=== PATIENT | male | born 1980 | race Caucasian/White ===

== ENCOUNTER 2022-02-26 05:24 | Emergency (ER) | payer SELFPAY ==
[2022-02-26 06:36] LABS: Urine Blood Negative (Negative); Urine Glucose Negative (Negative); Urine Protein Negative (Negative); Urine pH 7.5 (5.0-7.0)
[2022-02-26 06:43] LABS: Absolute Lymphocytes (CBC) 2.3 K/uL (0.7-4.9); Hematocrit 44.4 % (39.6-49.0); Lymphocytes % 24.5 % (15.3-44.8); MCV 91.6 fL (80-100); MPV 7.6 fL (7.6-11.3); RBC Red Blood Cell Count 4.85 M/uL (4.33-5.43)
[2022-02-26] MEDS ORDERED: NA CHLORIDE 0.9% 500 ML ONE (06:47)
[2022-02-26 06:53] LABS: Barbiturates NEGATIVE (NEGATIVE); Benzodiazepines NEGATIVE (NEGATIVE); Cocaine NEGATIVE (NEGATIVE); METHAMPHETAM NEGATIVE (NEGATIVE); Methadone NEGATIVE (NEGATIVE); Opiates NEGATIVE (NEGATIVE); Phencyclidine NEGATIVE (NEGATIVE); THC Cannibis NEGATIVE (NEGATIVE)
[2022-02-26 06:56] LABS: Protime INR 0.98
[2022-02-26 07:18] LABS: ALT/SGPT 68 U/L (12-78); AST/SGOT 30 U/L (15-37); Albumin 3.8 g/dL (3.4-5.0); Alkaline Phosphatase 92 U/L (45-117); BUN Blood Urea Nitrogen 19 mg/dL (7-18); Bicarbonate 26 mmol/L (21-32); Bilirubin Direct 0.1 mg/dL (0-0.2); Bilirubin Total 0.2 mg/dL (0.2-1.0); Glomerular Filtration Rate 112 ml/min (=/>90); Glucose Level 111 mg/dL (74-106); Potassium 3.7 mmol/L (3.5-5.1); Protein, Total 7.3 g/dL (6.4-8.2); Sodium Level 140 mmol/L (136-145)
--- NOTE | 2022-02-26 07:27 | ER ---
Nurse's Notes [facility] Name: Lobo Saravia Age: 41 yrs Sex: Male : 1980 Arrival Date: 02/26/2022 Time: 05:29 Bed 18 Private MD: Diagnosis: Bipolar disorder, unspecified-PARANOID Presentation: 02/26 05:46 Chief complaint: Spouse and/or significant other states: Per Sister in law patient is ke1 having muscle spasm since a month, agitation, confusion and paranoia due to not taking psych meds " he thinks someone is putting something in his cigarette''. Also patient is drinking about 4 gallons of water a day. Coronavirus screen: Vaccine status: Patient reports being unvaccinated. Ebola Screen: No symptoms or risks identified at this time. Initial Sepsis Screen: Does the patient meet any 2 criteria? No. Patient's initial sepsis screen is negative. Does the patient have a suspected source of infection? No. Patient's initial sepsis screen is negative. Risk Assessment: Do you want to hurt yourself or someone else? Patient reports no desire to harm self or others. Onset of symptoms was January 26, 2022. 05:46 Method Of Arrival: Ambulatory ke1 05:46 Acuity: ABHI 3 ke1 Triage Assessment: 05:51 General: Appears well developed, Behavior is cooperative. Pain: Denies pain. Neuro: ke1 Level of Consciousness is awake, alert, Oriented to person, place, time, situation. Respiratory: Respiratory effort is even, unlabored. Musculoskeletal: Reports muscle spasms. Historical: - Allergies: 05:50 No Known Allergies; ke1 - Home Meds: 05:56 Zoloft 50 mg Oral tab [Active]; Depakote 500 mg Oral TbEC [Active]; ke1 - PMHx: 05:56 Bipolar disorder; ke1 - Immunization history:: Adult Immunizations Client reports having NOT received the Covid vaccine. - Social history:: Smoking status: Patient reports the use of cigarette tobacco products, smokes one pack cigarettes per day. Screenin:53 Abuse screen: Denies threats or abuse. Nutritional screening: No deficits noted. ke1 Tuberculosis screening: No symptoms or risk factors identified. Fall Risk None identified. Assessment: 06:41 Reassessment: No changes from previously documented assessment. Patient is alert, ke1 oriented x 3, equal unlabored respirations, skin warm/dry/pink. Patient denies pain at this time. 07:12 General: Appears comfortable, Behavior is calm, cooperative. Pain: Denies pain. Neuro: em6 Hdz Agitation-Sedation Scale (RASS): 0 - Alert and Calm Level of Consciousness is awake, alert, obeys commands, Oriented to person, place, time, situation. Cardiovascular: Heart tones present Patient's skin is warm and dry. Respiratory: Airway is patent Respiratory effort is even, unlabored, Respiratory pattern is regular, symmetrical, Breath sounds are clear bilaterally. GI: No signs and/or symptoms were reported involving the gastrointestinal system. : No signs and/or symptoms were reported regarding the genitourinary system. EENT: No signs and/or symptoms were reported regarding the EENT system. Derm: Skin is pink, warm \\T\\ dry. Musculoskeletal: Range of motion: intact in all extremities, patient appears to have hiccups. 08:14 Reassessment: No changes from previously documented assessment. Patient denies pain at em6 this time. provider at bed side discussing plans with patient and family members. awaiting call back from [facility].. Neuro: Hdz Agitation-Sedation Scale (RASS): 0 - Alert and Calm Level of Consciousness is awake, alert, obeys commands, Oriented to person, place, time, situation. Respiratory: Airway is patent Respiratory effort is even, unlabored, Respiratory pattern is regular, symmetrical. 09:31 Reassessment: No changes from previously documented assessment. Patient denies pain at em6 this time. [facility] on a video call with patient. . Neuro: Hdz Agitation-Sedation Scale (RASS): 0 - Alert and Calm Level of Consciousness is awake, alert, obeys commands, Oriented to person, place, time, situation. 10:03 Reassessment: finished video call consult with [facility]. . Pain: Denies pain. Neuro: em6 Hdz Agitation-Sedation Scale (RASS): 0 - Alert and Calm Level of Consciousness is awake, alert, obeys commands, Oriented to person, place, time, situation. 11:00 Reassessment: Patient appears in no apparent distress at this time. patient has his em6 eyes closed. respirations are even and unlabored. . 12:00 Reassessment: Patient appears in no apparent distress at this time. No changes from em6 previously documented assessment. patient has eyes closed. respirations are even and unlabored. . 13:00 Reassessment: No changes from previously documented assessment. patient has eyes em6 closed. even and unlabored breathing noted. . 14:20 Reassessment: Patient appears in no apparent distress at this time. Neuro: Hdz 6 Agitation-Sedation Scale (RASS): 0 - Alert and Calm Level of Consciousness is Oriented to. Respiratory: Airway is patent Respiratory effort is even, unlabored, Respiratory pattern is regular, symmetrical. 15:30 Reassessment: Patient appears in no apparent distress at this time. No changes from em6 previously documented assessment. Patient is alert, oriented x 3, equal unlabored respirations, skin warm/dry/pink. Neuro: Hdz Agitation-Sedation Scale (RASS): 0 - Alert and Calm Level of Consciousness is awake, alert, obeys commands, Oriented to person, place, time, situation. Respiratory: Airway is patent Respiratory effort is even, unlabored, Respiratory pattern is regular, symmetrical. 16:30 Reassessment: Patient appears in no apparent distress at this time. No changes from em6 previously documented assessment. Patient is alert, oriented x 3, equal unlabored respirations, skin warm/dry/pink. Neuro: Hdz Agitation-Sedation Scale (RASS): 0 - Alert and Calm Level of Consciousness is awake, alert, obeys commands, Oriented to person, place, time, situation. Respiratory: Airway is patent Respiratory effort is even, unlabored, Respiratory pattern is regular, symmetrical. 17:30 Reassessment: Patient appears in no apparent distress at this time. No changes from em6 previously documented assessment. Patient is alert, oriented x 3, equal unlabored respirations, skin warm/dry/pink. Neuro: Hdz Agitation-Sedation Scale (RASS): 0 - Alert and Calm Level of Consciousness is awake, alert, obeys commands, Oriented to person, place, time, situation. Respiratory: Airway is patent Respiratory effort is even, unlabored, Respiratory pattern is regular, symmetrical. 18:45 Reassessment: Patient appears in no apparent distress at this time. Patient and/or jd3 family updated on plan of care and expected duration. Pain level reassessed. Patient is alert, oriented x 3, equal unlabored respirations, skin warm/dry/pink. 19:07 Reassessment: family number: brother [phone] sister in law [phone]. em6 02/27 01:11 Reassessment: pt has had an episode of angry outburst and it has lasted aprox 45min. pt dominguez first outburst episode was aprox 45 min ago when he came out of his room and yelled at me. pt stated " do you have a fucking problem?" i said no and pt "good!" another outburst was with a tech and he said " if you touch her, im going to fucking kill you!" pt is in room at this time. meds have been ordered. will give if needed. 02:15 Reassessment:. ja4 03:17 Reassessment: pt pacing room at this time. [facility] 03:28 Reassessment: pt in room and given the option to rcv some ativan to help him relax and ja4 stop pacing. pt stated " you aint giving me that shit." pt aadvised that it will help him get a little rest. he said "i aint taking that." i told him that i have it if he wants it then told him i am going to shut the door. pt then opened the door after it had been closed and also opened the door all the way on the next room and walked back into room and sat down. 03:45 Reassessment: pt decided to place chair outside the door and sit. pt advised that he dominguez needs to go back into room. pt stated "im good right here." I then told pt that he needs to go into room or he needs to leave the hospital. pt stated" no i dont im admitted." i told him that he wasn't and if he doesn't go back into room security would be notified. pt sat in chair until i picked up to phone to call security. pt then grabbed the chair and went back inside the room. provider notified. 04:46 Reassessment: pt packed up all his belongings and started walking to the exit but jaKrishna stopped and told if he was leaving i would have to take out those iv's. pt then turned around and said " no i aint leaving yet." pt then walked back into his room with his stuff in hand. pt now sitting in chair in room. 05:06 Reassessment: pt has stated that his brother is going to come get him. i advised him ja4 that he could leave anytime. he then decided to walk towards the exit and as he did i advised him that i would have to call the authorities if he walks out with iv's in arm. pt stated "go ahead and kept walking." i attempted to get ahold of security but no answer and pt walked around and went back to room. i asked if he would like that medicine the provider ordered and he states "no" i then told him all we ask is that he stays in the room and stop coming out. pt stated he is waiting for his brother. pt is now sitting in chair at door staring at staff as they walk by. 05:25 Reassessment: pt walked out to the waiting room to see if his brother was there and ja4 then he sat in a chair. i advised him that i needed to take the iv's out if he was going to leave. i told him i would put a cover over the site and he said i was not putting that stuff on him. i then said then you will probably bleed then he stated he would just use his shirt. aft the first iv i said ok now i need the other one and he stated, " ill just keep this one because im not leaving yet." i then informed him that he has to go back into the ED if he wants to keep the other iv in. pt said ok and we walked back to pts room. no profuse bleeding noted. iv not damaged. pt removed whole iv. 05:36 Reassessment: pt brother has been notified per pt and advised that pt wants to go home ja4 and that pt is not following the rules of the hospital and does not want medication to help with his erratic behavior. pt brother stated he would be here in a little bit. 05:36 Reassessment: pt has walked to exam chair to sit after repeated warnings to stay in ja4 room. pt sat down got back up and is now in his bed in his room. 07:30 Reassessment: Patient and/or family updated on plan of care and expected duration. Pain jh6 level reassessed. Patient is alert, oriented x 3, equal unlabored respirations, skin warm/dry/pink. Brother at bedside with sister n law. Pt cooperative and is eating doughnuts. shift supervisor film processing reported that pt had been uncooperative at times. pt states that he has been feeling anxious and is ok to receive Ativan and Geodon. Family states that pt has gone 2-3 days without sleeping before being able to rest. Introduced myself to pt and family. Pt states that he is going to try and sleeping having no thoughts of SI or HI. 09:58 Reassessment: Patient and/or family updated on plan of care and expected duration. Pain jh6 level reassessed. Pt resting, = rise and fall of chest and nad noted. 13:00 Reassessment: Patient is alert, oriented x 3, equal unlabored respirations, skin jh6 warm/dry/pink. Pt awake and requesting coffee, has put shoes on and states that he is wanting to get something out of the vending machines. Advised pt that he could not leave to the lobby with an IV in his arm and asked if he would like for me to take it out, pt stated no and walked back to room. 13:40 Reassessment: Patient is alert, oriented x 3, equal unlabored respirations, skin jh6 warm/dry/pink. Pt attempting to walk back out to lobby to the vending machines. States that he cannot eat the meal tray that we gave him because it smells funny. Pt states that he wants to talk to his brother but when i called him on the unit phone, pt stated that he would talk to him when he got here, that he was not using our phone. Pt did allow me to take IV out from rt fa at this time and is calm eating grapes that brother brought up for him. 15:48 Reassessment: Patient is alert, oriented x 3, equal unlabored respirations, skin jh6 warm/dry/pink. pts brother now at bedside, speaking with pt and advising him that he has to stay in his room. Brother states that he his going to stay this afternoon. 18:03 Reassessment: No changes from previously documented assessment. Patient is alert, jh6 oriented x 3, equal unlabored respirations, skin warm/dry/pink. Pts brother at bedside helping pt stay in room and redirect. pt alert cooperative having no thoughts of HI and or SI. 02/28 01:03 Reassessment: pt has gone outside to the lobby and sat in chair for aprox 5 minutes and ja4 is back in his room at this time. 05:48 Reassessment: pt in bed with eyes closed. breathing normal. no issues at this time. ja4 08:00 Reassessment: Patient appears in no apparent distress at this time. Patient and/or ph family updated on plan of care and expected duration. Pain level reassessed. Patient is alert, oriented x 3, equal unlabored respirations, skin warm/dry/pink. Pt resting quietly, no complaints at this time. 10:00 Reassessment: Patient appears in no apparent distress at this time. Patient and/or ph family updated on plan of care and expected duration. Pain level reassessed. Patient is alert, oriented x 3, equal unlabored respirations, skin warm/dry/pink. 12:00 Reassessment: Patient appears in no apparent distress at this time. Patient and/or ph family updated on plan of care and expected duration. Pain level reassessed. Patient is alert, oriented x 3, equal unlabored respirations, skin warm/dry/pink. Patient denies pain at this time. 15:10 Reassessment: Patient appears in no apparent distress at this time. Patient and/or ph family updated on plan of care and expected duration. Pain level reassessed. Patient is alert, oriented x 3, equal unlabored respirations, skin warm/dry/pink. Awaiting bed at psychiatric facility. 17:40 Reassessment: report given to NEO Foley at [facility]. 19:44 Reassessment: Pt leaving with EMS to Transfer to [facility]. Pt cooperative, alert and vc1 oriented. No IV access. Psych: 02/26 05:53 [place] Suicide Severity Screening: In the past month, have you wished you were ke1 or wished you could go to sleep and not wake up? Patient responds "No." "In the past month, have you actually had any thoughts of killing yourself?" Patient responds "no." "In your lifetime, have you ever done anything, started to do anything, or prepared to do anything to end your life?" Patient responds "no.". Subjective:. Objective: Patient is cooperative. 05:57 Interventions: Patient placed in hospital gown. Safety Checks: ke1 05:58 Pt denies substance abuse. ke1 07:15 Commitment: N/A. em6 Vital Signs: 05:46 BP 157 / 86; Pulse 80; Resp 19; Temp 99.2(O); Pulse Ox 97% on R/A; Weight 94.35 kg; ke1 Height 5 ft. 11 in. (180.34 cm); Pain 0/10; 07:26 BP 145 / 84; Pulse 72; Resp 16; Pulse Ox 99% on R/A; em6 08:30 BP 135 / 80; Pulse 75; Resp 16; Pulse Ox 99% on R/A; em6 09:15 BP 119 / 63; Pulse 72; Resp 18; Pulse Ox 98% on R/A; em6 10:00 BP 129 / 81; Pulse 91; Resp 18; Pulse Ox 99% on R/A; em6 14:00 BP 141 / 92; Pulse 73; Resp 16; Pulse Ox 100% on R/A; em6 17:50 BP 119 / 74; Pulse 67; Resp 16; Pulse Ox 100% on R/A; em6 02/27 07:30 BP 116 / 80; Pulse 66; Resp 17; Temp 97.7(O); Pulse Ox 98% ; Pain 0/10; jh6 02/28 08:00 BP 117 / 76; Pulse 68; Resp 18; Temp 97.9; Pulse Ox 100% on R/A; ph 02/26 05:46 Body Mass Index 29.01 (94.35 kg, 180.34 cm) ke1 ED Course: 02/26 05:29 Patient arrived in ED. bp1 05:31 Corey Sawyer RN is Primary Nurse. ke1 05:37 Rodrigo Koch MD is Attending Physician. iraj 05:50 Triage completed. ke1 05:53 Patient has correct armband on for positive identification. Call light in reach. Adult ke1 w/ patient. 06:25 Inserted saline lock: 20 gauge in right forearm, using aseptic technique. ke1 06:35 Inserted saline lock: 20 gauge in right antecubital area, using aseptic technique. ke1 07:15 Primary Nurse role handed off by Corey Sawyer RN eb 07:27 Patient notified of wait time. em6 08:25 Desai, Tesfaye, RN is Primary Nurse. jd3 10:13 faxed patient info to Timothy from the [facility]. eb 23:54 faxed patient clinicals to all available psych facilities. mw2 02/27 05:25 IV discontinued, intact, No redness/swelling at site. IV removed from right AC by pt. ja4 08:08 refaxed chart to [facility]. bd 23:21 Faxed requested Exclusionary form to [facility]. wm 02/28 06:38 Called [facility] to get an update regarding the Dr. to since the exclusionary form was sent and received last night. Lacie stated she will present to this morning and we should be getting a call this morning. 14:48 faxed repeat cbc and cmp to [facility] as requested by [facility]. bd 18:06 re faxed labs to [phone]. sp 18:07 called [facility]' waiting for Doc to Doc. sp 18:28 No provider procedures requiring assistance completed. ph Administered Medications: 02/26 05:38 CANCELLED (Physician Discretion): NS 0.9% 500 ml IV at 125 ml/hr continuous tw5 06:41 Drug: NS 0.9% 500 ml Route: IV; Rate: bolus; Site: right forearm; ke1 07:15 Follow up: Response: No adverse reaction; IV Status: Completed infusion; IV Intake: em6 500ml 02/27 07:15 Drug: Ativan (LORazepam) 2 mg Route: IVP; Site: right forearm; ja4 07:18 Drug: Geodon (ziprasidone) 20 mg Route: IM; Site: left deltoid; ja4 21:27 CANCELLED (Physician Discretion): SEROquel (QUEtiapine) 25 mg PO once ms3 21:52 Drug: SEROquel (QUEtiapine) 25 mg Route: PO; ja4 Medication: 02/28 13:47 VIS not applicable for this client. ph Intake: 02/26 07:15 IV: 500ml; Total: 500ml. em6 Outcome: 07:27 ER care complete, transfer ordered by MD. galo 02/28 19:45 Transferred by ground EMS to other acute care facility: [facility]. Transfer form vc1 completed. Condition: good Instructed on the need for transfer. 19:47 Patient left the ED. vc1 Signatures: Dulce Garcia Corey, MD MD cha Pinkerton, Shawna sp Hall, Patricia RN Tesfaye Kim ph D, RN RN jd3 Naomi, Rohit mw2 Leighann Winchester, Deandra Guevara Jennifer, RN RN jh6 Jodie Le RN RN vc1 Corey Sawyer RN RN ke1 Jeannine Redd RN RN em6 Lobo Madrigal RN RN 4 Arsh Jett DO ms3 Wood, Anisha tw5 Corrections: (The following items were deleted from the chart) 02/26 06:42 05:46 Chief complaint: Spouse and/or significant other states: Per Sister in law ke1 patient is having muscle spasm since a month, agitation, confusion and paranoia due to not taking psych meds " he thinks someone is putting something in his cigarette'' 1 06:42 05:51 General: Appears well developed, Behavior is cooperative, [place] [id number] 07:06 05:46 Chief complaint: Spouse and/or significant other states: Per Sister in law ke1 patient is having muscle spasm since a month, agitation, confusion and paranoia due to not taking psych meds " he thinks someone is putting something in his cigarette'' ke1 08:26 08:14 Reassessment: No changes from previously documented assessment. Patient denies em6 pain at this time. em6 08:27 08:14 Reassessment: No changes from previously documented assessment. Patient denies em6 pain at this time. provider at bed side discussing plans with patient and family members. . em6 14:20 13:00 Reassessment: No changes from previously documented assessment. em6 em6 02/27 06:09 05:25 IV discontinued, intact, No redness/swelling at site. [id number] 13:53 13:50 Reassessment: Patient is alert, oriented x 3, equal unlabored respirations, skin jh6 warm/dry/pink. Pt awake and requesting coffee, has put shoes on and states that he is wanting to get something out of the vending machines. Advised pt that he could not leave to the lobby with an IV in his arm and asked if he would like for me to take it out, pt stated no and walked back to room. jh6
--- NOTE | 2022-02-26 07:27 | EDPHYS ---
Physician Documentation [facility] Name: Lobo Saravia Age: 41 yrs Sex: Male : 1980 Arrival Date: 02/26/2022 Time: 05:29 Bed 18 Private MD: ZE Physician Rodrigo Koch HPI: 02/26 06:10 This 41 yrs old Male presents to ER via Ambulatory with complaints of Psych iraj Problem, Muscle Spasm. 06:10 The patient presents to the emergency department with paranoia. Onset: The iraj symptoms/episode began/occurred 1 day(s) ago. Past psychiatric history: Prior diagnosis: bipolar disorder, Psychiatric medications include: Zoloft, DEPAKOTE. Associated signs and symptoms: Pertinent positives; delusions. Severity of symptoms: At their worst the symptoms were mild in the emergency department the symptoms are unchanged. The patient has not experienced similar symptoms in the past. Historical: - Allergies: 05:50 No Known Allergies; ke1 - Home Meds: 05:56 Zoloft 50 mg Oral tab [Active]; Depakote 500 mg Oral TbEC [Active]; ke1 - PMHx: 05:56 Bipolar disorder; ke1 - Immunization history:: Adult Immunizations Client reports having NOT received the Covid vaccine. - Social history:: Smoking status: Patient reports the use of cigarette tobacco products, smokes one pack cigarettes per day. ROS: 06:13 Constitutional: Negative for fever, chills, and weight loss, Eyes: Negative for injury, iraj pain, redness, and discharge, ENT: Negative for injury, pain, and discharge, Neck: Negative for injury, pain, and swelling, Cardiovascular: Negative for chest pain, palpitations, and edema, Respiratory: Negative for shortness of breath, cough, wheezing, and pleuritic chest pain, Abdomen/GI: Negative for abdominal pain, nausea, vomiting, diarrhea, and constipation, Back: Negative for injury and pain, : Negative for injury, bleeding, discharge, and swelling, MS/Extremity: Negative for injury and deformity, Skin: Negative for injury, rash, and discoloration, Neuro: Negative for headache, weakness, numbness, tingling, and seizure, Psych: Negative for depression, anxiety, suicide ideation, homicidal ideation, and hallucinations, Allergy/Immunology: Negative for hives, rash, and allergies, Endocrine: Negative for neck swelling, polydipsia, polyuria, polyphagia, and marked weight changes. Exam: 06:13 Constitutional: This is a well developed, well nourished patient who is awake, alert, iraj and in no acute distress. Head/Face: Normocephalic, atraumatic. Eyes: Pupils equal round and reactive to light, extra-ocular motions intact. Lids and lashes normal. Conjunctiva and sclera are non-icteric and not injected. Cornea within normal limits. Periorbital areas with no swelling, redness, or edema. ENT: Nares patent. No nasal discharge, no septal abnormalities noted. Tympanic membranes are normal and external auditory canals are clear. Oropharynx with no redness, swelling, or masses, exudates, or evidence of obstruction, uvula midline. Mucous membranes moist. Neck: Trachea midline, no thyromegaly or masses palpated, and no cervical lymphadenopathy. Supple, full range of motion without nuchal rigidity, or vertebral point tenderness. No Meningismus. Chest/axilla: Normal chest wall appearance and motion. Nontender with no deformity. No lesions are appreciated. Cardiovascular: Regular rate and rhythm with a normal S1 and S2. No gallops, murmurs, or rubs. Normal PMI, no JVD. No pulse deficits. Respiratory: Lungs have equal breath sounds bilaterally, clear to auscultation and percussion. No rales, rhonchi or wheezes noted. No increased work of breathing, no retractions or nasal flaring. Abdomen/GI: Soft, non-tender, with normal bowel sounds. No distension or tympany. No guarding or rebound. No evidence of tenderness throughout. Back: No spinal tenderness. No costovertebral tenderness. Full range of motion. Male : Normal genitalia with no discharge or lesions. Skin: Warm, dry with normal turgor. Normal color with no rashes, no lesions, and no evidence of cellulitis. MS/ Extremity: Pulses equal, no cyanosis. Neurovascular intact. Full, normal range of motion. Neuro: Awake and alert, GCS 15, oriented to person, place, time, and situation. Cranial nerves II-XII grossly intact. Motor strength 5/5 in all extremities. Sensory grossly intact. Cerebellar exam normal. Normal gait. Psych: Awake, alert, with orientation to person, place and time. Behavior, mood, and affect are within normal limits. 06:59 ECG was reviewed by the Attending Physician. [facility] Vital Signs: 05:46 BP 157 / 86; Pulse 80; Resp 19; Temp 99.2(O); Pulse Ox 97% on R/A; Weight 94.35 kg; ke1 Height 5 ft. 11 in. (180.34 cm); Pain 0/10; 07:26 BP 145 / 84; Pulse 72; Resp 16; Pulse Ox 99% on R/A; em6 08:30 BP 135 / 80; Pulse 75; Resp 16; Pulse Ox 99% on R/A; em6 09:15 BP 119 / 63; Pulse 72; Resp 18; Pulse Ox 98% on R/A; em6 10:00 BP 129 / 81; Pulse 91; Resp 18; Pulse Ox 99% on R/A; em6 14:00 BP 141 / 92; Pulse 73; Resp 16; Pulse Ox 100% on R/A; em6 17:50 BP 119 / 74; Pulse 67; Resp 16; Pulse Ox 100% on R/A; em6 02/27 07:30 BP 116 / 80; Pulse 66; Resp 17; Temp 97.7(O); Pulse Ox 98% ; Pain 0/10; jh6 02/28 08:00 BP 117 / 76; Pulse 68; Resp 18; Temp 97.9; Pulse Ox 100% on R/A; ph 02/26 05:46 Body Mass Index 29.01 (94.35 kg, 180.34 cm) ke1 MDM: 02/26 05:37 Patient medically screened. [facility] 06:13 Differential diagnosis: acute psychotic break, depression. Differential Diagnosis iraj altered mental status. Data reviewed: vital signs, nurses notes, lab test result(s), EKG. Data interpreted: neurology epilepsy physician: rate is 80 beats/min, rhythm is regular, Pulse oximetry: on room air is 97 %. Test interpretation: by ED physician or midlevel provider: ECG. Counseling: I had a detailed discussion with the patient and/or guardian regarding: the historical points, exam findings, and any diagnostic results supporting the discharge/admit diagnosis, lab results, radiology results. 02/28 06:36 ED course: Patient resting comfortably in bed a this time. Will start patient on ms3 Seroquel while pending transfer.. 06:37 ED course: Patient remains in stable condition at this time. Patient is resting ms3 comfortably in bed, calm and cooperative.. 18:08 ED course: Doc to doc report was given to Dr. Mcdaniel at [facility] and patient has sd2 been accepted. Pt remains voluntary with stable VS and is stable for transfer. . 02/26 05:37 Order name: Acetaminophen; Complete Time: 07:19 tw5 02/26 05:37 Order name: Basic Metabolic Panel; Complete Time: 07:19 tw5 02/26 05:37 Order name: CBC with Diff; Complete Time: 06:50 tw5 02/26 05:37 Order name: ETOH Level; Complete Time: 07:08 tw5 02/26 05:37 Order name: Hepatic Function; Complete Time: 07:19 tw5 02/26 05:37 Order name: PT-INR; Complete Time: 07:01 tw5 02/26 05:37 Order name: Ptt, Activated; Complete Time: 07:01 tw5 02/26 05:37 Order name: Salicylate; Complete Time: 07:17 tw5 02/26 05:37 Order name: Urine Drug Screen; Complete Time: 07:01 tw5 02/26 06:05 Order name: Valproic Acid (depakote); Complete Time: 08:05 lg3 02/26 06:37 Order name: Urine Dipstick-Ancillary; Complete Time: 06:50 EDMS 02/26 08:06 Order name: SARS RAPID; Complete Time: 07:12 eb 02/28 13:47 Order name: CBC with Diff; Complete Time: 18:06 ss 02/28 13:47 Order name: CMP; Complete Time: 18:06 ss 02/26 05:37 Order name: EKG; Complete Time: 05:38 tw5 02/26 05:37 Order name: EKG - Nurse/Tech; Complete Time: 06:36 tw5 02/26 05:37 Order name: IV Saline Lock; Complete Time: 06:35 tw02/26 05:37 Order name: Labs collected and sent; Complete Time: 06:35 tw5 02/26 05:37 Order name: Suicide Screening ([place]); Complete Time: 06:35 tw5 02/26 17:07 Order name: Diet Regular; Complete Time: 17:08 em6 02/27 07:18 Order name: Diet Finger Food; Complete Time: 07:19 ja4 02/28 07:38 Order name: Diet Finger Food; Complete Time: 07:39 bd 02/28 09:36 Order name: Diet Finger Food; Complete Time: 09:36 ph 02/28 12:02 Order name: Diet Finger Food; Complete Time: 12:03 bd 02/26 05:37 Order name: Urine Dipstick-Ancillary (obtain specimen); Complete Time: 06:35 tw5 02/26 05:37 Order name: NPO; Complete Time: 06:36 tw5 EC/18 06:59 Rate is 77 beats/min. Rhythm is regular. QRS Allison is Normal. PA interval is normal. QRS iraj interval is normal. QT interval is normal. No Q waves. T waves are Normal. No ST changes noted. Clinical impression: NSR w/ Non-specific ST/T Changes and No evidence of ischemia. Interpreted by me. Reviewed by me. Administered Medications: 05:38 CANCELLED (Physician Discretion): NS 0.9% 500 ml IV at 125 ml/hr continuous tw5 06:41 Drug: NS 0.9% 500 ml Route: IV; Rate: bolus; Site: right forearm; ke1 07:15 Follow up: Response: No adverse reaction; IV Status: Completed infusion; IV Intake: em6 500ml 02/27 07:15 Drug: Ativan (LORazepam) 2 mg Route: IVP; Site: right forearm; ja4 07:18 Drug: Geodon (ziprasidone) 20 mg Route: IM; Site: left deltoid; ja4 21:27 CANCELLED (Physician Discretion): SEROquel (QUEtiapine) 25 mg PO once ms3 21:52 Drug: SEROquel (QUEtiapine) 25 mg Route: PO; ja4 Disposition Summary: 02/26/22 07:27 Transfer Ordered Transfer Location: Psych Facility iraj Reason: Higher level of care iraj Condition: Stable iraj Problem: new iraj Symptoms: have improved iraj Accepting Physician: TO PSYCH(02/28/22 19:47) vc1 Diagnosis - Bipolar disorder, unspecified - PARANOID iraj Forms: - Medication Reconciliation Form iraj - SBAR form iraj Signatures: Dispatcher [employer] EDRodrigo Gil MD MD cha Sims, Marcus, DO DO ms3 Anisha Ramey tw5 Jodie Le RN RN vc1 Corey Sawyer RN RN Carito Dickey MD MD sd2 Lobo Madrigal RN RN ja4 Jeannine Redd RN em6 Corrections: (The following items were deleted from the chart) 02/26 05:38 05:37 NS 0.9% 500 ml IV at 125 ml/hr continuous ordered. tw5 tw5 02/27 21:27 21:26 SEROquel (QUEtiapine) 25 mg PO once ordered. ms3 ms3 02/28 19:47 02/26 07:27 TO PSYCH iraj vc1
[2022-02-26 08:31] LABS: SARS-CoV-2 Antigen Rapid Res Negative (Negative)
--- NOTE | 2022-02-26 15:55 | EKG ---
Test Date: 2022-02-26 Test Time: 06:34:35 [employer] Changer: [place] MEASUREMENT RESULTS: Intervals: Rate: 77 NH: 142 QRSD: 92 QT: 372 QTc: 420 Flom: P: 21 NH: 142 QRS: 14 T: -4 INTERPRETIVE STATEMENTS: Normal sinus rhythm Normal ECG No previous ECG available for comparison Electronically Signed On 02-26-22 15:54:17 CDT by Romulo Juares
[2022-02-26] MEDS ORDERED: ZIPRASIDONE MESYLA 20 MG/VIAL IM ONE (23:54)
[2022-02-27] MEDS ORDERED: LORazepam 2 MG/ML VIAL ONE (03:31)
[2022-02-27] MEDS ORDERED: TAMSULOSIN 0.4 MG SR CAP ONE (05:54)
[2022-02-27] MEDS ORDERED: HYDROMORPHONE HCL 1 MG/ML INJ ONE (05:54)
[2022-02-27] MEDS ORDERED: QUETIAPINE 25 MG TAB ONE (21:42)
[2022-02-28 14:12] LABS: Absolute Lymphocytes (CBC) 1.7 K/uL (0.7-4.9); Hematocrit 46.5 % (39.6-49.0); Lymphocytes % 22.2 % (15.3-44.8); MCV 92.1 fL (80-100); MPV 7.7 fL (7.6-11.3); RBC Red Blood Cell Count 5.05 M/uL (4.33-5.43)
[2022-02-28 14:31] LABS: Albumin 3.8 g/dL (3.4-5.0); Bilirubin Total 0.2 mg/dL (0.2-1.0); Potassium 3.7 mmol/L (3.5-5.1); Protein, Total 7.3 g/dL (6.4-8.2)
[2022-03-02 00:56] VITALS: O2SAT 100
[2022-03-02 01:11] VITALS: BP 117/76; TEMP 97.9
== END 2022-02-28 19:47 ==
LOC: ER 05:24
DX: F31.9 Bipolar disorder, unspecified (principal); F17.210 Nicotine dependence, cigarettes, uncomplicated
CPT/HCPCS: 36415; 80048; 80053; 80076; 80164; 80307; 80320; 80329; 81003; 85025; 85610; 85730; 87811; 93005; J3486; J7040